=== PATIENT | male | born 1965 | race American Indian/Alaskan Native ===

== ENCOUNTER 2017-11-10 08:53 | Emergency (ER) | payer OTHER ==
[2017-11-10 09:01] VITALS: BP 141/87
[2017-11-10] MEDS ORDERED: MOTRIN PO ONE (09:13)
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
== END 2017-11-10 10:07 | disposition home or self-care (01) ==
LOC: ED 08:53
DX: S39.012A Strain of muscle, fascia and tendon of lower back, initial encounter (principal); V89.2XXA Person injured in unspecified motor-vehicle accident, traffic, initial encounter; Y93.89 Activity, other specified; Y92.89 Other specified places as the place of occurrence of the external cause; Y99.8 Other external cause status
CPT/HCPCS: 72100; 99283